=== PATIENT | female | born 1945 | race Caucasian/White ===

== ENCOUNTER → 2018-04-19 | Outpatient (CLI) | payer OTHER, MEDICARE ==
[~2018-04-19] MED LIST: ACID REDUCER20 MG PO; ASPIR 8181 M1 PO; BACTROBAN CREAM30 G1 TOP; ENOXAPARIN40 MG/0.1 SUBQ; FLEXERIL PO; KOMBIGLYZE XR1 EACH PO; MICARDIS40 MG PO; NITROGLYCERIN0.4 MG SUBLING; OIL OF OREGAN1500 MG PO; OMEGA-31000 M1 PO; VITAMIN D35000 UNI1 PO; ZANTAC 150MG T150 MG PO; [UNRECOGNIZED DRUG - OTHER] MC; [UNRECOGNIZED DRUG - OTHER] PO; [UNRECOGNIZED DRUG - OTHER] PO; [UNRECOGNIZED DRUG - OTHER] PO
== END ==
LOC: M.ULTRA 04-09 11:41 → M.RAD 08:21
DX: Z12.31 Encounter for screening mammogram for malignant neoplasm of breast (principal); Z13.820 Encounter for screening for osteoporosis; E04.2 Nontoxic multinodular goiter; E28.39 Other primary ovarian failure; M54.5 Low back pain; R31.9 Hematuria, unspecified